=== PATIENT | female | born 1975 | race African-American/Black ===

== ENCOUNTER 2017-08-02 20:51 | Emergency (ER) | payer OTHER ==
[2017-08-02 21:05] VITALS: BP 147/82; PULSE 79; TEMP 97.5; BMI 29.0
--- NOTE | 2017-08-02 21:06 | PDOC ---
Rapid Medical Evaluation Time Seen by Provider: 08/02/17 20:58 Medical Evaluation: 08/02/17 20:58 I performed a brief in-person evaluation of this patient. The patient presents with a chief complaint of: s/p fall downstairs, complaining of hitting head front and back of head and neck. Complaining of nausea and vomiting Denies lightheadedness, blurred vision or dizziness Pertinent physical exam findings: NAD, appears uncomfortable HEENT: +ttp mid occiput, no hematoma or bruising noted on face lungs: unlabored breathing heart s1s2 Neuro: no mid cervical spine tenderness, +para cervical spinal tenderness I have ordered the following: saline lock fluid antiemetic The patient will proceed to the Ed for further evaluation
[2017-08-02] MEDS ORDERED: SODIUM CHLORIDE 1,000 ML IV STA (21:07)
[2017-08-02] MEDS ORDERED: METOCLOPRAMIDE HCL INJECTION 10 MG/2 ML VIAL IVPUSH ONE (21:07)
[2017-08-02] MEDS ORDERED: METOCLOPRAMIDE HCL INJECTION 10 MG/2 ML VIAL ONE (21:20)
--- NOTE | 2017-08-03 00:12 | PDOC ---
History of Present Illness - History of Present Illness Initial Comments: 08/03/17 00:12 42 y/o F with no PMHx presents to the ED s/p fall tonight. Patient states that she did not see the step and fell down the flight of stairs. The patient reports that she hit the front and back of her head. Patient reports associated neck pain and occipital head pain. She also reports 2 episodes of vomiting s/p fall. Denies LOC. Denies current nausea. Denies blurry vision. Denies tobacco, alcohol, drug use. <Aisha Xie - Last Filed: 08/03/17 00:12> <Blair Garcia - Last Filed: 08/03/17 00:22> - General Chief Complaint: Injury Stated Complaint: INJURY Time Seen by Provider: 08/02/17 20:58 Past History <Aisha Xie - Last Filed: 08/03/17 00:12> - Past Medical History COPD: No Other medical history: denies - Suicide/Smoking/Psychosocial Hx Smoking History: Never smoked <Blair Garcia - Last Filed: 08/03/17 00:22> - Past Medical History Allergies/Adverse Reactions: Allergies Allergy/AdvReac Type Severity Reaction Status Date / Time No Known Allergies Allergy Verified 08/02/17 21:04 Home Medications: Ambulatory Orders NK [No Known Home Medication] 08/02/17 Review of Systems - Review of Systems Comments:: 08/03/17 00:13 CONSTITUTIONAL: No fever, no chills, no fatigue EYES: No visual changes ENT: No ear pain, no sore throat CARDIOVASCULAR: No chest pain, no palpitations RESPIRATORY: No cough, no SOB GI: (+) vomiting. No abdominal pain, no nausea, no constipation, no diarrhea GENITOURINARY: No dysuria, no frequency, no hematuria MUSCULOSKELETAL: (+) neck pain. No back pain, no joint pain, no myalgias SKIN: No rash NEURO: (+) headache <Aisha Xie - Last Filed: 08/03/17 00:12> *Physical Exam - Vital Signs Last Vital Signs Temp Pulse Resp BP Pulse Ox 97.5 F L 79 18 147/82 100 08/02/17 21:00 08/02/17 21:00 08/02/17 21:00 08/02/17 21:00 08/02/17 21:00 - Physical Exam Comments: 08/03/17 00:13 CONSTITUTIONAL: Well-appearing; well-nourished; in no apparent distress HEAD: occipital tenderness, no step offs, no step EYES: PERRL; EOM intact ENMT: External appears normal; normal oropharynx NECK: Supple; nontender; no cervical lymphadenopathy CARD: Normal S1, S2; no murmurs, rubs, or gallops RESP: Normal chest excursion with respiration; breath sounds clear and equal bilaterally; no wheezes, rhonchi, or rales ABD: Soft, non-distended; non-tender; no palpable organomegaly, no palpable hernias EXT: Normal ROM in all four extremities; non-tender to palpation; distal pulses intact SKIN: Warm, dry, no rash NEURO: No focal neurological deficiencies. <Aisha Xie A - Last Filed: 08/03/17 00:12> - Vital Signs Last Vital Signs Temp Pulse Resp BP Pulse Ox 97.5 F L 79 18 147/82 100 08/02/17 21:00 08/02/17 21:00 08/02/17 21:00 08/02/17 21:00 08/02/17 21:00 <Blair Garcia - Last Filed: 08/03/17 00:22> ED Treatment Course - ADDITIONAL ORDERS Additional order review: Laboratory Results 08/02/17 22:36 Urine HCG, Qual Negative - Medications Given in the ED: ED Medications Discontinued Medications Generic Name Dose Route Start Last Admin Trade Name Freq PRN Reason Stop Dose Admin Sodium Chloride 1,000 mls @ 1,000 mls/hr 08/02/17 21:07 08/02/17 21:23 Normal Saline - IV 08/02/17 22:06 1,000 mls/hr ASDIR STA Administration Metoclopramide HCl 10 mg 08/02/17 21:07 08/02/17 21:23 Reglan Injection - IVPUSH 08/02/17 21:08 10 mg ONCE ONE Administration <RojasAisha A - Last Filed: 08/03/17 00:12> - ADDITIONAL ORDERS Additional order review: Laboratory Results 08/02/17 22:36 Urine HCG, Qual Negative - RADIOLOGY Radiology Studies Ordered: Category Date Time Status HEAD CT WITHOUT CONTRAST [CT] Stat CT Scan 08/02/17 23:11 Completed - Medications Given in the ED: ED Medications Discontinued Medications Generic Name Dose Route Start Last Admin Trade Name Brandyn PRN Reason Stop Dose Admin Sodium Chloride 1,000 mls @ 1,000 mls/hr 08/02/17 21:07 08/02/17 21:23 Normal Saline - IV 08/02/17 22:06 1,000 mls/hr ASDIR STA Administration Metoclopramide HCl 10 mg 08/02/17 21:07 08/02/17 21:23 Reglan Injection - IVPUSH 08/02/17 21:08 10 mg ONCE ONE Administration <Blair Garcia - Last Filed: 08/03/17 00:22> Medical Decision Making - Medical Decision Making 08/03/17 00:20 Patient is well-appearing 42-year-old female who presents to the ER with a mild occipital headache status post mechanical fall followed by several episodes of nonbloody nonbilious vomiting. In the ER, patient is awake and alert, oriented 3; physical exam reveals minimal occipital tenderness only without bony crepitus or step-offs. Cranial nerves II through XII are grossly intact; motor is 5 of 54; gait is stable. There is no pronation drift. Evaluation of cervical spine reveals no deformity, no midline tenderness, full range of motion. CT of head shows no evidence of acute pathology. I suspect a concussion. Will discharge with head injury instructions and PMD follow-up. <Blair Garcia - Last Filed: 08/03/17 00:22> *DC/Admit/Observation/Transfer - Attestations Scribe Attestion: 08/03/17 00:13 Documentation prepared by Aisha Xie, acting as medical collector for Blair Garcia MD. <Aisha Xie - Last Filed: 08/03/17 00:12> - Attestations Physician Attestion: 08/03/17 00:20 The documentation was prepared by the scribe under my direct supervision. I have reviewed the documentation which correctly represents the findings, medical decision-making and critical action taken by me. <Blair Garcia - Last Filed: 08/03/17 00:22> Diagnosis at time of Disposition: Head injury, acute Qualifiers: Encounter type: initial encounter Qualified Code(s): S09.90XA - Unspecified injury of head, initial encounter - Discharge Dispostion Disposition: HOME Condition at time of disposition: Stable - Referrals Referrals: pmd, one week [Other] - Patient Instructions Printed Discharge Instructions: DI for Closed Head Injury
== END 2017-08-03 00:32 | disposition home or self-care (01) ==
LOC: JER 20:51
PROC: 3E033GC Introduction of Other Therapeutic Substance into Peripheral Vein, Percutaneous Approach (ICD-10-PCS; principal; 2017-08-02)
DX: S09.8XXA Other specified injuries of head, initial encounter (principal); W10.8XXA Fall (on) (from) other stairs and steps, initial encounter; Y93.89 Activity, other specified; Y92.89 Other specified places as the place of occurrence of the external cause; Y99.8 Other external cause status
CPT/HCPCS: 70450-TC; 84703; 96374; 99283-25